=== PATIENT | female | born 1995 | race Caucasian/White ===

== ENCOUNTER 2023-01-07 11:06 | Outpatient (CLI) | payer BC, SELFPAY ==
[2023-01-07 14:09] LABS: Cholesterol* 178 mg/dL (90-199); Glucose* 90 mg/dL (60-115); HDL Cholesterol* 47 mg/dL (>=50); LDL Cholesterol Calculated 108 mg/dL (<100); Triglycerides* 115 mg/dL (40-149)
== END 2023-01-07 11:07 | disposition home or self-care (01) ==
PROVIDERS: PCP Family Medicine; Visit Provider Physician Assistant
DX: Z01.419 Encounter for gynecological examination (general) (routine) without abnormal findings (principal); E66.9 Obesity, unspecified; L65.9 Nonscarring hair loss, unspecified; F41.9 Anxiety disorder, unspecified; Z13.6 Encounter for screening for cardiovascular disorders; Z13.1 Encounter for screening for diabetes mellitus
CPT/HCPCS: 80061; 82947; 84443

== ENCOUNTER 2023-03-01 14:27 | Outpatient (CLI) | payer BC, SELFPAY | END 2023-03-01 14:28 | disposition home or self-care (01) | LOC: AMB 03-02 06:35 | PROVIDERS: PCP Family Medicine; Visit Provider Family Medicine | DX: R55 Syncope and collapse (principal) | CPT/HCPCS: A0425; A0427 ==

== ENCOUNTER 2023-03-01 14:48 | Emergency (ER) | payer BC, SELFPAY ==
[2023-03-01] VITALS (21 sets, daily range): BP systolic 102–121; BP diastolic 57–79; PULSE 74–99; RESP 16; TEMP 36.7; O2SAT 16–99; BMI 40.6
--- NOTE | 2023-03-01 15:43 | CRLHL7_ITS ---
For Patients: As a result of the Century Cures Act, medical imaging exams and procedure reports are released immediately into your electronic medical record. You may view this report before your referring provider. If you have questions, please contact your health care provider. INDICATION: Fall. TECHNIQUE: Noncontrast CT images acquired through the cervical spine. COMPARISON: None. FINDINGS: Mild rightward cervical curvature. Mild straightening of the cervical lordosis. Vertebral body heights are maintained. No acute fracture, spondylolisthesis, or traumatic subluxation. No spinal canal or neural foraminal stenosis. The visualized lungs are clear. IMPRESSION: No acute fracture or traumatic subluxation. Please note that all CT scans at this facility use dose modulation, iterative reconstruction, and/or weight-based dosing when appropriate to reduce radiation dose to as low as reasonably achievable. Dictated by Keyon Villanueva MD @ 03/01/2023 6:28:28 PM (Electronically Signed)
--- NOTE | 2023-03-01 15:43 | CRLHL7_ITS ---
For Patients: As a result of the Century Cures Act, medical imaging exams and procedure reports are released immediately into your electronic medical record. You may view this report before your referring provider. If you have questions, please contact your health care provider. INDICATION: Fall. TECHNIQUE: Noncontrast CT images acquired through the brain. COMPARISON: None. FINDINGS: The ventricles and sulci are within normal limits for patient age. No mass effect or midline shift. The healy-white differentiation is maintained. No acute intracranial hemorrhage or pathologic extra-axial fluid collection. The globes are symmetric. The calvarium is intact. The visualized paranasal sinuses and mastoid air cells are clear. IMPRESSION: No acute intracranial hemorrhage or mass effect. Please note that all CT scans at this facility use dose modulation, iterative reconstruction, and/or weight-based dosing when appropriate to reduce radiation dose to as low as reasonably achievable. Dictated by Keyon Villanueva MD @ 03/01/2023 6:17:23 PM (Electronically Signed)
--- NOTE | 2023-03-01 15:45 | ED_ITS ---
HPI - Dizziness General Date Seen: 03/01/23 <Eliceo Marsh MD - Last Filed: 03/05/23 07:58> Chief Complaint: Syncope/Fainted <Eliceo Marsh MD - Last Filed: 03/05/23 07:58> Stated Complaint: Syncope <Eliceo Marsh MD - Last Filed: 03/05/23 07:58> Time Seen by Provider: 03/01/23 15:06 <Eliceo Marsh MD - Last Filed: 03/05/23 07:58> Source: patient, family and EMS <Eliceo Marsh MD - Last Filed: 03/05/23 07:58> Mode of arrival: EMS <Eliceo Marsh MD - Last Filed: 03/05/23 07:58> Limitations: no limitations <Eliceo Marsh MD - Last Filed: 03/05/23 07:58> History of Present Illness HPI Narrative: Patient is a 27-year-old female who presents here by EMS after a syncopal episode, she fell at home, she was feeling unwell after a walk with her partner, when in the bedroom here to clunk in that he witnessed her on the ground, she has the front part of her head, the back part, she has a headache and some neck pain with this. Sugars were checked at the scene over 85 which was good, she recently in the last 2 weeks is put on prazosin, and this was increased last night, she reports to me that she feels dizzy, and weak, and feels like the room is moving around, has no history of previous head injuries, she has no history of viral type symptoms, such as sore throat runny nose, there is no fevers chills, she did have an episode of syncope when she was much younger but has not had that recently. She denies any drugs, alcohol, history of any cardiac issues. Strong history of psychiatric illnesses. Denies being sexually active, <Eliceo Marsh MD - Last Filed: 03/05/23 07:58> MD elicited complaint: dizziness and lightheadedness <Eliceo Marsh MD - Last Filed: 03/05/23 07:58> Timing: sudden onset <Eliceo Marsh MD - Last Filed: 03/05/23 07:58> Severity: moderate <Eliceo Marsh MD - Last Filed: 03/05/23 07:58> Description: sense of movement, room spinning and lightheadedness <Eliceo Marsh MD - Last Filed: 03/05/23 07:58> History of similar symptoms: Yes <Eliceo Marsh MD - Last Filed: 03/05/23 07:58> Exacerbating factors: movement/ambulation and change in body position <Eliceo Marsh MD - Last Filed: 03/05/23 07:58> Relieving factors: remaining still <Eliceo Marsh MD - Last Filed: 03/05/23 07:58> Associated symptoms: denies other symptoms <Eliceo Marsh MD - Last Filed: 03/05/23 07:58> Related Data Home Medications: Home Medications Medication Instructions Recorded Confirmed aripiprazole 5 mg tablet 5 mg PO DAILY 06/10/22 01/28/23 clindamycin phosphate 1 % lotion 1 topical BID 06/10/22 01/28/23 atomoxetine 25 mg capsule 25 mg PO QDAY 01/28/23 01/28/23 prazosin 1 mg capsule 1 - 2 mg PO QPM 03/01/23 03/01/23 trazodone 50 mg tablet 50 - 100 mg PO QPM 03/01/23 03/01/23 Previous Rx's Medication Instructions Recorded ondansetron 8 mg disintegrating 8 mg PO TID PRN nausea and 01/28/23 tablet vomiting #20 tabs sumatriptan succinate 100 mg tablet 100 mg PO Q2H PRN migraine 02/04/23 headache #10 tabs <Eliceo Marsh MD - Last Filed: 03/05/23 07:58> Allergies/Adverse Reactions: Allergies Allergy/AdvReac Type Severity Reaction Status Date / Time No Known Drug Allergies Allergy Verified 01/28/23 13:52 <Eliceo Marsh MD - Last Filed: 03/05/23 07:58> Review of Systems Status of ROS: Reports: 10 or more systems reviewed and unremarkable except as noted in History and below <Eliceo Marsh MD - Last Filed: 03/05/23 07:58> [facility] Medical History: Medical History Anxiety ?F41.9 - Anxiety disorder, unspecified (ICD-10) Attention deficit disorder ?F98.8 - Other specified behavioral and emotional disorders with onset usually occurring in childhood and adolescence (ICD-10) Major depression, chronic ?F32.9 - Major depressive disorder, single episode, unspecified (ICD-10) Migraine headache ?G43.909 - Migraine, unspecified, not intractable, without status migrainosus (ICD-10) Obesity ?E66.9 - Obesity, unspecified (ICD-10) Schizoaffective disorder ?F25.9 - Schizoaffective disorder, unspecified (ICD-10) <Eliceo Marsh MD - Last Filed: 03/05/23 07:58> Surgical History: Surgical History History of third molar tooth extraction ?K08.409 - Partial loss of teeth, unspecified cause, unspecified class (ICD- 10) <Eliceo Marsh MD - Last Filed: 03/05/23 07:58> Family History: Family History Brother Depression Mother Migraines <Eliceo Marsh MD - Last Filed: 03/05/23 07:58> Social History: Social History Narrative: , currently not working. Exercises twice a week. Nonsmoker. No alcohol or illicit drug use. Feels safe in no concerns with abuse. Smoking Status: Never smoker How often do you have a drink containing alcohol: never AUDIT-C Alcohol total score: 0 Non-prescribed substance use: denies use Little interest or pleasure in doing things: not at all Feeling down, depressed, or hopeless: several days service: No <Eliceo Marsh MD - Last Filed: 03/05/23 07:58> Exam Narrative: Exam Narrative: Patient is seen in room 5 she is in no apparent distress, her pupils are equal round reactive to light her fundi appear normally she does have nystagmus horizontal [address] 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 Her neck is full range of motion of flexion extension lateral flexion and rotation, there is no tenderness to palpation, TMs are normal, she moves her extremities normal, her chest is clear, heart sounds are normal, cervical thoracic and lumbar spine palpate normal, her GCS is 15/15, good power both distally and proximally, symmetrical, and her reflexes are normal fine motor movements fingers nose testing are normal and there is no obvious tremor. <Eliceo Marsh MD - Last Filed: 03/05/23 07:58> Const: Vital Signs, click to edit/add: Vital Signs - 24 hr 03/01/23 14:55 03/01/23 17:12 03/01/23 15:57 Temperature 98.1 F Pulse Rate 92 Pulse Rate [Left P ulse Oximeter] 87 88 Respiratory Rate 16 Blood Pressure Blood Pressure [Ri ght Upper Arm] 102/69 113/74 Pulse Oximetry 94 16 L [facility] 03/01/23 16:00 03/01/23 16:01 03/01/23 16:15 Temperature Pulse Rate 92 99 93 Pulse Rate [Left P ulse Oximeter] Respiratory Rate Blood Pressure 120/57 L Blood Pressure [Ri ght Upper Arm] Pulse Oximetry 95 96 97 Oxygen Delivery Ut thod 03/01/23 16:30 03/01/23 16:31 03/01/23 16:45 Temperature Pulse Rate 86 86 91 Pulse Rate [Left P ulse Oximeter] Respiratory Rate Blood Pressure 111/68 Blood Pressure [Ri ght Upper Arm] Pulse Oximetry 98 97 97 Oxygen Delivery Me thod 03/01/23 17:13 03/01/23 17:14 03/01/23 17:15 Temperature Pulse Rate 84 84 83 Pulse Rate [Left P ulse Oximeter] Respiratory Rate Blood Pressure 113/74 Blood Pressure [Ri ght Upper Arm] Pulse Oximetry 98 98 97 Oxygen Delivery Ut thod 03/01/23 17:30 03/01/23 17:31 03/01/23 17:32 Temperature Pulse Rate 86 89 89 Pulse Rate [Left P ulse Oximeter] Respiratory Rate Blood Pressure 110/78 Blood Pressure [Ri ght Upper Arm] Pulse Oximetry 97 97 97 Oxygen Delivery Me thod <Eliceo Marsh MD - Last Filed: 03/05/23 07:58> Vital Signs, click to edit/add: Vital Signs - 24 hr 03/01/23 14:55 03/01/23 17:12 03/01/23 15:57 Temperature 98.1 F Pulse Rate 92 Pulse Rate [Left P ulse Oximeter] 87 88 Respiratory Rate 16 Blood Pressure Blood Pressure [Ri ght Upper Arm] 102/69 113/74 Pulse Oximetry 94 16 L 98 Oxygen Delivery Me thod Room Air Room Air 03/01/23 16:00 03/01/23 16:01 03/01/23 16:15 Temperature Pulse Rate 92 99 93 Pulse Rate [Left P ulse Oximeter] Respiratory Rate Blood Pressure 120/57 L Blood Pressure [Ri ght Upper Arm] Pulse Oximetry 95 96 97 Oxygen Delivery Me thod 03/01/23 16:30 03/01/23 16:31 03/01/23 16:45 Temperature Pulse Rate 86 86 91 Pulse Rate [Left P ulse Oximeter] Respiratory Rate Blood Pressure 111/68 Blood Pressure [Ri ght Upper Arm] Pulse Oximetry 98 97 97 Oxygen Delivery Me thod 03/01/23 17:13 03/01/23 17:14 03/01/23 17:15 Temperature Pulse Rate 84 84 83 Pulse Rate [Left P ulse Oximeter] Respiratory Rate Blood Pressure 113/74 Blood Pressure [Ri ght Upper Arm] Pulse Oximetry 98 98 97 Oxygen Delivery Me thod 03/01/23 17:30 03/01/23 17:31 03/01/23 17:32 Temperature Pulse Rate 86 89 89 Pulse Rate [Left P ulse Oximeter] Respiratory Rate Blood Pressure 110/78 Blood Pressure [Ri ght Upper Arm] Pulse Oximetry 97 97 97 Oxygen Delivery Me thod <Mateo Thorpe MD - Last Filed: 03/01/23 18:40> Documenting provider has reviewed patient's vital signs: yes <Eliceo Marsh MD - Last Filed: 03/05/23 07:58> Course Vital Signs Vital signs: Initial Vital Signs Temperature 98.1 F 03/01/23 14:55 Temperature Source Temporal Artery Scan 03/01/23 14:55 Pulse Rate 87 03/01/23 14:55 Pulse Rhythm Regular 03/01/23 14:55 Respiratory Rate 16 03/01/23 14:55 Blood Pressure 102/69 03/01/23 14:55 Blood Pressure Mean 80 03/01/23 14:55 Pulse Oximetry 94 03/01/23 14:55 Oxygen Delivery Method Room Air 03/01/23 14:55 Vital Signs Temperature 98.1 F 03/01/23 14:55 Pulse Rate 87 03/01/23 14:55 Respiratory Rate 16 03/01/23 14:55 Blood Pressure 102/69 03/01/23 14:55 Pulse Oximetry 94 03/01/23 14:55 Oxygen Delivery Method Room Air 03/01/23 14:55 Temperature 98.1 F 03/01/23 14:55 Pulse Rate 86 03/01/23 18:45 Respiratory Rate 16 03/01/23 14:55 Blood Pressure 121/79 03/01/23 18:31 Pulse Oximetry 97 03/01/23 18:45 Oxygen Delivery Method Room Air 03/01/23 17:12 <Eliceo Marsh MD - Last Filed: 03/05/23 07:58> Initial Vital Signs Temperature 98.1 F 03/01/23 14:55 Temperature Source Temporal Artery Scan 03/01/23 14:55 Pulse Rate 87 03/01/23 14:55 Pulse Rhythm Regular 03/01/23 14:55 Respiratory Rate 16 03/01/23 14:55 Blood Pressure 102/69 03/01/23 14:55 Blood Pressure Mean 80 03/01/23 14:55 Pulse Oximetry 94 03/01/23 14:55 Oxygen Delivery Method Room Air 03/01/23 14:55 Vital Signs Temperature 98.1 F 03/01/23 14:55 Pulse Rate 87 03/01/23 14:55 Respiratory Rate 16 03/01/23 14:55 Blood Pressure 102/69 03/01/23 14:55 Pulse Oximetry 94 03/01/23 14:55 Oxygen Delivery Method Room Air 03/01/23 14:55 Temperature 98.1 F 03/01/23 14:55 Pulse Rate 86 03/01/23 18:45 Respiratory Rate 16 03/01/23 14:55 Blood Pressure 121/79 03/01/23 18:31 Pulse Oximetry 97 03/01/23 18:45 Oxygen Delivery Method Room Air 03/01/23 17:12 <Mateo Thorpe MD - Last Filed: 03/01/23 18:40> MDM - Dizziness MDM Narrative Medical decision making narrative: Life-threatening differential diagnosis considered include: Cardiac arrhythmia, acute blood loss, and intracranial bleed. Other differential diagnosis include but are not limited to vasovagal syncope, orthostatic syncope, seizure, as well as other etiologies <Eliceo Marsh MD - Last Filed: 03/05/23 07:58> Life-threatening differential diagnosis considered include: Cardiac arrhythmia, acute blood loss, and intracranial bleed. Other differential diagnosis include but are not limited to vasovagal syncope, orthostatic syncope, seizure, as well as other etiologies This patient comes in with a syncopal event. Lab results and imaging results returned with normal findings. She did increase her prazosin dose yesterday and this lower blood pressure is a contributor toward her syncopal event. Her blood pressure on arrival was 102/69. At the time that I checked her she had a blood pressure of 121 for systolic value. She is feeling normal and is okay to return home. I did advise her to revert back to the previous dosing and follow-up with her primary physician for re-evaluation of this medication. It would also be helpful if she were able to acquire some blood pressure readings for this follow-up appointment. <Mateo Thorpe MD - Last Filed: 03/01/23 18:40> Medical Records Attestation: I reviewed the patient's medical records. <Eliceo Marsh MD - Last Filed: 03/05/23 07:58> Lab Data Labs: Lab Results 03/01/23 03/01/23 03/01/23 Range/Units 15:41 15:55 16:05 WBC 11.60 H (4.50-11.00) K/uL RBC 5.00 (4.00-5.20) m/uL Hgb 13.8 (12.0-16.0) gm/dL Hct 41.3 (33.0-51.0) % MCV 83 (80-100) fL MCH 28 (26-34) pg MCHC 33 (32-36) gm/dL RDW Coeff of [place] 12.5 (11.5-15.5) % Plt Count 290 (140-440) K/uL Neut % (Auto) 78.6 H (42.0-72.0) % Lymph % (Auto) 11.5 L (20-44) % [place] % (Auto) 8.8 (0.0-11.0) % Eos % (Auto) 0.8 (0.0-7.0) % Baso % (Auto) 0.2 (0.0-3.0) % Neut # (Auto) 9.10 H (1.7-7.0) K/uL Lymph # (Auto) 1.30 (0.90-2.90) K/uL [place] # (Auto) 1.00 H (0.00-0.90) K/UL Eos # (Auto) 0.10 (0.00-0.50) K/uL Baso # (Auto) 0.00 (0.00-0.30) K/uL INR 1.02 (0.91-1.10) APTT 28 (23-33) Seconds D-Dimer Quant (PE/DVT) < 0.27 (0.00-0.50) ug/ml Sodium 137 (135-149) mmol/L Potassium 4.0 (3.6-5.1) mmol/L Chloride 102 (96-114) mmol/L Carbon Dioxide 24 (20-32) mmol/L BUN 16 (5-24) mg/dL Creatinine 0.7 (0.5-1.5) mg/dL Estimated Creat Clear 98.98 Estimated GFR 121 ml/min Glucose 139 H (60-115) mg/dL Calcium 9.2 (8.4-10.6) mg/dL NT-Pro-B Natriuret Pep < 20 pg/mL HCG, Qual Negative (Negative) Urine Color (Yellow) Urine Appearance (Clear) Urine pH (5.0-8.5) Ur Specific [place] (1.000-1.030) Urine Protein (Negative) Urine Glucose (UA) (Negative) Urine Ketones (Negative) Urine Blood (Negative) Urine Nitrite (Negative) Urine Bilirubin (Negative) Urine Urobilinogen (0.2-1.0) Ur Leukocyte Esterase (Negative) Urine RBC (0-2) Urine WBC (0-5) Ur Squamous Epith Cells (None-Few) Urine Bacteria (None) Fine Granular Casts (None) Urine Opiates Screen (Negative) Ur Oxycodone Screen (Negative) Urine Methadone Screen (Negative) Ur Propoxyphene Screen (Negative) Ur Barbiturates Screen (Negative) U Tricyclic Antidepress (Negative) Ur Phencyclidine Scrn (Negative) Ur Amphetamines Screen (Negative) U Methamphetamines Scrn (Negative) U Benzodiazepines Scrn (Negative) Urine Cocaine Screen (Negative) U Marijuana (THC) Screen (Negative) Ur Drug Screen Comment Ethyl Alcohol < 0.01 L (0.01-0.03) % SARS-CoV-2 (PCR) Negative SARS-CoV-2 (Negative) Influenza Type A (PCR) Negative PCR FLU A (Negative) Influenza Type B (PCR) Negative PCR FLU B (Negative) RSV (PCR) Negative PCR RSV (Negative) POC Troponin I 0.00 L (0.01-0.04) ng/ml 03/01/23 Range/Units 16:51 WBC (4.50-11.00) K/uL RBC (4.00-5.20) m/uL Hgb (12.0-16.0) gm/dL Hct (33.0-51.0) % MCV (80-100) fL MCH (26-34) pg MCHC (32-36) gm/dL RDW Coeff of [place] (11.5-15.5) % Plt Count (140-440) K/uL Neut % (Auto) (42.0-72.0) % Lymph % (Auto) (20-44) % [place] % (Auto) (0.0-11.0) % Eos % (Auto) (0.0-7.0) % Baso % (Auto) (0.0-3.0) % Neut # (Auto) (1.7-7.0) K/uL Lymph # (Auto) (0.90-2.90) K/uL [place] # (Auto) (0.00-0.90) K/UL Eos # (Auto) (0.00-0.50) K/uL Baso # (Auto) (0.00-0.30) K/uL INR (0.91-1.10) APTT (23-33) Seconds D-Dimer Quant (PE/DVT) (0.00-0.50) ug/ml Sodium (135-149) mmol/L Potassium (3.6-5.1) mmol/L Chloride (96-114) mmol/L Carbon Dioxide (20-32) mmol/L BUN (5-24) mg/dL Creatinine (0.5-1.5) mg/dL Estimated Creat Clear Estimated GFR ml/min Glucose (60-115) mg/dL Calcium (8.4-10.6) mg/dL NT-Pro-B Natriuret Pep pg/mL HCG, Qual (Negative) Urine Color [place] A (Yellow) Urine Appearance Slightly Cloudy A (Clear) Urine pH 6.0 (5.0-8.5) Ur Specific [place] >= 1.030 (1.000-1.030) Urine Protein 1+ A (Negative) Urine Glucose (UA) Negative (Negative) Urine Ketones Negative (Negative) Urine Blood Negative (Negative) Urine Nitrite Negative (Negative) Urine Bilirubin 1+ A (Negative) Urine Urobilinogen 1.0 (0.2-1.0) Ur Leukocyte Esterase Negative (Negative) Urine RBC 0-2 (0-2) Urine WBC 0-2 (0-5) Ur Squamous Epith Cells Few (None-Few) Urine Bacteria Moderate A (None) Fine Granular Casts Few A (None) Urine Opiates Screen Negative (Negative) Ur Oxycodone Screen Negative (Negative) Urine Methadone Screen Negative (Negative) Ur Propoxyphene Screen Negative (Negative) Ur Barbiturates Screen Negative (Negative) U Tricyclic Antidepress Negative (Negative) Ur Phencyclidine Scrn Negative (Negative) Ur Amphetamines Screen Negative (Negative) U Methamphetamines Scrn Negative (Negative) U Benzodiazepines Scrn Negative (Negative) Urine Cocaine Screen Negative (Negative) U Marijuana (THC) Screen Negative (Negative) Ur Drug Screen Comment See Note Ethyl Alcohol (0.01-0.03) % SARS-CoV-2 (PCR) (Negative) Influenza Type A (PCR) (Negative) Influenza Type B (PCR) (Negative) RSV (PCR) (Negative) POC Troponin I (0.01-0.04) ng/ml <Eliceo Marsh MD - Last Filed: 03/05/23 07:58> Lab Results 03/01/23 03/01/23 03/01/23 Range/Units 15:41 15:55 16:05 WBC 11.60 H (4.50-11.00) K/uL RBC 5.00 (4.00-5.20) m/uL Hgb 13.8 (12.0-16.0) gm/dL Hct 41.3 (33.0-51.0) % MCV 83 (80-100) fL MCH 28 (26-34) pg MCHC 33 (32-36) gm/dL RDW Coeff of [place] 12.5 (11.5-15.5) % Plt Count 290 (140-440) K/uL Neut % (Auto) 78.6 H (42.0-72.0) % Lymph % (Auto) 11.5 L (20-44) % [place] % (Auto) 8.8 (0.0-11.0) % Eos % (Auto) 0.8 (0.0-7.0) % Baso % (Auto) 0.2 (0.0-3.0) % Neut # (Auto) 9.10 H (1.7-7.0) K/uL Lymph # (Auto) 1.30 (0.90-2.90) K/uL [place] # (Auto) 1.00 H (0.00-0.90) K/UL Eos # (Auto) 0.10 (0.00-0.50) K/uL Baso # (Auto) 0.00 (0.00-0.30) K/uL INR 1.02 (0.91-1.10) APTT 28 (23-33) Seconds D-Dimer Quant (PE/DVT) < 0.27 (0.00-0.50) ug/ml Sodium 137 (135-149) mmol/L Potassium 4.0 (3.6-5.1) mmol/L Chloride 102 (96-114) mmol/L Carbon Dioxide 24 (20-32) mmol/L BUN 16 (5-24) mg/dL Creatinine 0.7 (0.5-1.5) mg/dL Estimated Creat Clear 98.98 Estimated GFR 121 ml/min Glucose 139 H (60-115) mg/dL Calcium 9.2 (8.4-10.6) mg/dL NT-Pro-B Natriuret Pep < 20 pg/mL HCG, Qual Negative (Negative) Urine Color (Yellow) Urine Appearance (Clear) Urine pH (5.0-8.5) Ur Specific [place] (1.000-1.030) Urine Protein (Negative) Urine Glucose (UA) (Negative) Urine Ketones (Negative) Urine Blood (Negative) Urine Nitrite (Negative) Urine Bilirubin (Negative) Urine Urobilinogen (0.2-1.0) Ur Leukocyte Esterase (Negative) Urine RBC (0-2) Urine WBC (0-5) Ur Squamous Epith Cells (None-Few) Urine Bacteria (None) Fine Granular Casts (None) Urine Opiates Screen (Negative) Ur Oxycodone Screen (Negative) Urine Methadone Screen (Negative) Ur Propoxyphene Screen (Negative) Ur Barbiturates Screen (Negative) U Tricyclic Antidepress (Negative) Ur Phencyclidine Scrn (Negative) Ur Amphetamines Screen (Negative) U Methamphetamines Scrn (Negative) U Benzodiazepines Scrn (Negative) Urine Cocaine Screen (Negative) U Marijuana (THC) Screen (Negative) Ur Drug Screen Comment Ethyl Alcohol < 0.01 L (0.01-0.03) % SARS-CoV-2 (PCR) Negative SARS-CoV-2 (Negative) Influenza Type A (PCR) Negative PCR FLU A (Negative) Influenza Type B (PCR) Negative PCR FLU B (Negative) RSV (PCR) Negative PCR RSV (Negative) POC Troponin I 0.00 L (0.01-0.04) ng/ml 03/01/23 Range/Units 16:51 WBC (4.50-11.00) K/uL RBC (4.00-5.20) m/uL Hgb (12.0-16.0) gm/dL Hct (33.0-51.0) % MCV (80-100) fL MCH (26-34) pg MCHC (32-36) gm/dL RDW Coeff of [place] (11.5-15.5) % Plt Count (140-440) K/uL Neut % (Auto) (42.0-72.0) % Lymph % (Auto) (20-44) % [place] % (Auto) (0.0-11.0) % Eos % (Auto) (0.0-7.0) % Baso % (Auto) (0.0-3.0) % Neut # (Auto) (1.7-7.0) K/uL Lymph # (Auto) (0.90-2.90) K/uL [place] # (Auto) (0.00-0.90) K/UL Eos # (Auto) (0.00-0.50) K/uL Baso # (Auto) (0.00-0.30) K/uL INR (0.91-1.10) APTT (23-33) Seconds D-Dimer Quant (PE/DVT) (0.00-0.50) ug/ml Sodium (135-149) mmol/L Potassium (3.6-5.1) mmol/L Chloride (96-114) mmol/L Carbon Dioxide (20-32) mmol/L BUN (5-24) mg/dL Creatinine (0.5-1.5) mg/dL Estimated Creat Clear Estimated GFR ml/min Glucose (60-115) mg/dL Calcium (8.4-10.6) mg/dL NT-Pro-B Natriuret Pep pg/mL HCG, Qual (Negative) Urine Color [place] A (Yellow) Urine Appearance Slightly Cloudy A (Clear) Urine pH 6.0 (5.0-8.5) Ur Specific [place] >= 1.030 (1.000-1.030) Urine Protein 1+ A (Negative) Urine Glucose (UA) Negative (Negative) Urine Ketones Negative (Negative) Urine Blood Negative (Negative) Urine Nitrite Negative (Negative) Urine Bilirubin 1+ A (Negative) Urine Urobilinogen 1.0 (0.2-1.0) Ur Leukocyte Esterase Negative (Negative) Urine RBC 0-2 (0-2) Urine WBC 0-2 (0-5) Ur Squamous Epith Cells Few (None-Few) Urine Bacteria Moderate A (None) Fine Granular Casts Few A (None) Urine Opiates Screen Negative (Negative) Ur Oxycodone Screen Negative (Negative) Urine Methadone Screen Negative (Negative) Ur Propoxyphene Screen Negative (Negative) Ur Barbiturates Screen Negative (Negative) U Tricyclic Antidepress Negative (Negative) Ur Phencyclidine Scrn Negative (Negative) Ur Amphetamines Screen Negative (Negative) U Methamphetamines Scrn Negative (Negative) U Benzodiazepines Scrn Negative (Negative) Urine Cocaine Screen Negative (Negative) U Marijuana (THC) Screen Negative (Negative) Ur Drug Screen Comment See Note Ethyl Alcohol (0.01-0.03) % SARS-CoV-2 (PCR) (Negative) Influenza Type A (PCR) (Negative) Influenza Type B (PCR) (Negative) RSV (PCR) (Negative) POC Troponin I (0.01-0.04) ng/ml <Mateo Thorpe MD - Last Filed: 03/01/23 18:40> ECG Data Attestation: I personally reviewed and interpreted this ECG as follows: <Eliceo Marsh MD - Last Filed: 03/05/23 07:58> ECG interpretation date: 03/01/23 <Eliceo Marsh MD - Last Filed: 03/05/23 07:58> Prior ECG tracings: not available for review <Eliceo Marsh MD - Last Filed: 03/05/23 07:58> Interpretation: EKG shows normal sinus rhythm, QRS, QT and IA intervals are normal, assessment EKG with T-wave abnormality most notably in V1 and V2, no acute changes. <Eliceo Marsh MD - Last Filed: 03/05/23 07:58> Discharge Plan Discharge Clinical Impression: Syncope <Eliceo Marsh MD - Last Filed: 03/05/23 07:58> Patient Disposition: Home, Self-Care <Eliceo Marsh MD - Last Filed: 03/05/23 07:58> Condition: Improved <Eliceo Marsh MD - Last Filed: 03/05/23 07:58> Additional Instructions: Revert back to previous dose of prazosin and follow-up with primary physician to review medications. Would be helpful to record blood pressure readings for this appointment. <Eliceo Marsh MD - Last Filed: 03/05/23 07:58> Prescriptions: No Action aripiprazole 5 mg tablet 5 mg PO DAILY clindamycin phosphate 1 % lotion 1 topical BID Rx Instructions: Apply topically to affectd area twice daily atomoxetine 25 mg capsule 25 mg PO QDAY ondansetron 8 mg tablet,disintegrating 8 mg PO TID PRN (Reason: nausea and vomiting) Qty: 20 0RF trazodone 50 mg tablet 50 - 100 mg PO QPM prazosin 1 mg capsule 1 - 2 mg PO QPM sumatriptan succinate 100 mg tablet 100 mg PO Q2H PRN (Reason: migraine headache) Qty: 10 5RF Rx Instructions: ONE TAB AT ONSET OF HEADACHE, MAY REPEAT ONCE IN 2 HRS, MAX 200 MG/24 HRS <Eliceo Marsh MD - Last Filed: 03/05/23 07:58> Follow Up/Referrals: Nael Hassan MD [Primary Care Provider] - <Eliceo Marsh MD - Last Filed: 03/05/23 07:58> Stand Alone Forms: [facility] Info Instructions <Eliceo Marsh MD - Last Filed: 03/05/23 07:58>
[2023-03-01] MEDS: 0.9 % SODIUM CHLORIDE 1000 ml 1,000 ML IV (16:16)
[2023-03-01 16:31] LABS: Basophils Percent Auto 0.2 % (0.0-3.0); Eosinophils Percent Auto 0.8 % (0.0-7.0); Hematocrit 41.3 % (33.0-51.0); Hemoglobin* 13.8 gm/dL (12.0-16.0); Immature Granulocytes Pct Auto 0.1 %; Lymphocytes Percent Auto 11.5 % (20-44); Mean Corpuscular HGB Conc 33 gm/dL (32-36); Mean Corpuscular Hemoglobin 28 pg (26-34); Mean Corpuscular Volume 83 fL (80-100); Monocytes Percent Auto 8.8 % (0.0-11.0); Neutrophils Percent Auto 78.6 % (42.0-72.0); Platelet Count* 290 K/uL (140-440); RDW Coefficient of Variation % 12.5 % (11.5-15.5)
[2023-03-01 16:37] LABS: Slide Review Reflex No
[2023-03-01 16:43] LABS: Chloride* 102 mmol/L (96-114); Sodium* 137 mmol/L (135-149)
[2023-03-01 16:46] LABS: Blood Urea Nitrogen* 16 mg/dL (5-24); Carbon Dioxide* 24 mmol/L (20-32); Creatinine* 0.7 mg/dL (0.5-1.5); Est. Creatinine Clearance* 98.98; Estimated Glomerular Filt Rate 121 ml/min
[2023-03-01 16:47] LABS: Calcium* 9.2 mg/dL (8.4-10.6); Glucose* 139 mg/dL (60-115); INR 1.02 (0.91-1.10)
[2023-03-01 16:48] LABS: Partial Thromboplastin Time* 28 Seconds (23-33)
[2023-03-01 17:01] LABS: D Dimer Quantitative* < 0.27 ug/ml (0.00-0.50)
[2023-03-01 17:03] LABS: Appearance Urine Slightly Cloudy (Clear); Bilirubin Urine 1+ (Negative); Blood Urine Negative (Negative); Color Urine Orange (Yellow); Glucose Urine Negative (Negative); Ketones Urine Negative (Negative); Leukocyte Esterase Urine Negative (Negative); Nitrite Urine Negative (Negative); Protein Urine 1+ (Negative); Specific Gravity Urine >= 1.030 (1.000-1.030)
[2023-03-01 17:05] LABS: PCR FLU A Negative PCR FLU A (Negative); PCR FLU B Negative PCR FLU B (Negative); PCR RSV Negative PCR RSV (Negative); SARS PCR* Negative SARS-CoV-2 (Negative)
[2023-03-01 17:11] LABS: Amphetamine Screen Urine Negative (Negative); Barbiturate Screen Urine Negative (Negative); Benzodiazepines Screen Urine Negative (Negative); Cannabinoid Screen Urine Negative (Negative); Cocaine Screen Urine Negative (Negative); Methadone Screen Urine Negative (Negative); Methamphetamines Screen Urine Negative (Negative); Opiate Screen Urine Negative (Negative); Oxycodone Screen Urine Negative (Negative); Phencyclidine Screen Urine Negative (Negative); Tricyclic Antidepressant Urine Negative (Negative)
[2023-03-01 17:16] LABS: HCG Qualitative Serum* Negative (Negative)
[2023-03-01 17:17] LABS: RBC Urine 0-2 (0-2); Squamous Epithelial Cell Urine Few (None-Few); WBC Urine 0-2 (0-5)
[2023-03-01 17:18] LABS: Bacteria Urine Moderate; Fine Granular Casts Urine Few
[2023-03-01 17:20] LABS: Ethanol* < 0.01 % (0.01-0.03); NT Pro B Type NatriureticPept* < 20 pg/mL
== END 2023-03-01 18:56 | disposition home or self-care (01) ==
PROVIDERS: Family Medicine; Emergency Provider Emergency Medicine Emergency Medical Services; PCP Family Medicine
DX: R55 Syncope and collapse (principal)
CPT/HCPCS: 36415; 70450; 72125; 80048; 80306; 81001; 82077; 83880; 84484; 84703; 85025; 85379; 85610; 85730; 87086; 87631; 93005; 99284; J7030

== ENCOUNTER 2023-05-19 13:00 | Outpatient (RCR) | payer BC, SELFPAY ==
--- NOTE | 2023-04-08 14:18 | PT.OPEX ---
PT [place] Outpatient Eval PT [facility] Outpatient Eval Start: 03/31/23 12:50 Freq: Status: Active Protocol: Document 03/31/23 12:50 HN (Rec: 04/01/23 10:00 HN [id number]) E-signed By Gretchen Narayanan DPT Physical Therapy Outpatient Evaluation Insurance Information Recert Due Date 06/28/23 Insurance Name Medicaid Insurance Information/Comments [place] Products Medical Diagnosis Pain in left knee M25. 562 Treating Diagnosis Pain in left knee M25. 562 Referring MD Nael Santiago MD Subjective Subjective Patient is a 28 year old female with 6 year chronic knee pain with recent exacerbation 3 weeks ago with syncopal episode. Patient reports she fainted to low blood pressure from medications. Patient reports her left knee jose alfredo 1x/day. Pain characteristics: pain is dull and achey, diffusely along anterior knee Aggravating factors: bending for prolonged periods of time, sitting with legs crossed, stairs, walking long distances >3 miles. Easing Factors: Tylenol, stretching leg straight Prior level of function: independent and unlimited with all ADLs and IADLs Current limitations: bending for prolonged periods of time, sitting with legs crossed, stairs, walking long distances >3 miles. 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 2 stairs to get into apartment, laundry is on second floor of apartment. Pain Comments Current: 10 Best: 10 Worst: /10 Current Work Status Unemployed Preferred Name Sahra Precautions Weight Bearing Status Full Weight Bearing Objective Other/Pertinent Objective Range of motion (degrees): Hip range of motion is grossly intact bilaterally Knee ROM: 0-125 degrees bilaterally, increased pain at end range on left 5 time sit to stand: 13 seconds with increased pain Manual muscle testing: Hip flexion: 4/5 L , 5/5 R Hip abduction: 5/5 L , 5/5 R Hip adduction: 5/5 L , 5/5 R Hip extension: 3+/5 L , 5/5 R Knee extension: 4/5 L , 5/5 R Knee flexion: 4/5 L , 5/5 R Ankle DF : 5/5 L , 5/5 R Ankle PF: 5/5 L , 5/5 R Special tests: Anterior drawer: negative bilaterally Posterior drawer: negative bilaterally Valgus: negative bilaterally Varus: negative bilaterally Thessally: positive on left Apley's: positive on left Patellar grind: negative bilaterally Squat: increased pain, wide base of support, decreased depth of squat Step down test: mild hip weakness noted, increased pain on L Sensation: patient denies any changes in sensation Joint mobility: painful with medial/lateral patellar glides Palpation: increased tenderness along medial border of patella Functional Test Performed & Score Lower Extremity Functional Score: 38 / 80 = 47.5 % Assessment Assessment/Impression Patient is a 28 year old with complaints of chronic left knee pain with recent exacerbation in last 3 weeks after syncopal episode. Patient demonstrates impaired pain at end range flexion/ extension of left knee , decreased left hip and knee strength, and pain consistent with knee instability. The impairments impact the patients ability to sit for prolonged periods of time, standing and walking for prolonged periods of time, ascending/descending stairs. Patient will benefit from skilled physical therapy to address the impairments and activity limitations listed above. Prognostic factors include chronic nature of symptoms and patient's age. Primary Functional Limitations sit for prolonged periods of time, standing and walking for prolonged periods of time, ascending/descending stairs. Plan of Care Rehabilitation Potential Good Physical Therapy Goals Short term goals (05/12/23 6 weeks) 1. Patient will demonstrate MMT of 4/5 in hip and L LE in order to demonstrate improved tolerance with walking and ascending/descending stairs 2 Patient will report <6/10 at worst pain in order to demonstrate decreased pain and disability related to symptoms 3. Patient will report less than 3 instances of knee buckling per week to demonstrate decreased disability related to knee nursing home goals (12 weeks ) 1. Patient will demonstrate LEFS score improvement of to 65 or greater to demosntrate decreased pain and disability related to symptoms 2. Patient will report <4/10 pain in order to demonstrate decreased pain and disability related to symptoms 3. Patient will demonstrate independence with HEP in order to decrease knee pain and improve knee strength 4. Patient will tolerate walking 4 miles or greater with no increase in pain order to return to prior level of function. 5. Patient will ascend/descend flight of stairs with no increase in pain and no buckling in order to complete laundry on second floor of apartment Treatment Plan/Direct Interventions Joint Mobilization,Manual Therapy,Neuromuscular Re-ed, Self-Care/Home Management, Therapeutic Activities, Therapeutic Exercises Frequency/Duration 1-2 x/week up to 12 weeks Patient Will Be Discharged From Therapy Completion of LTG(s),Skills Plateau,Independent w/HEP Evaluation Billing Untimed Code Treatment Minutes 20 Complexity Low Certification Information Initial Certification Date 03/31/23 Ending Certification Date 06/28/23 Provider Signature Shows Agreement With POC & Medical Necessity Physician Signature & Date Requested Please Sign/Date Here Physician Comment/Change : Physician NPI Number #
== END 2023-06-27 13:21 | disposition home or self-care (01) ==
PROVIDERS: PCP Family Medicine; Visit Provider Family Medicine
DX: M25.562 Pain in left knee (principal); Z51.89 Encounter for other specified aftercare
CPT/HCPCS: 97110; 97140; 97161; 97530

== ENCOUNTER 2024-02-07 07:30 | Outpatient (CLI) | payer BC, SELFPAY | END 2024-02-07 07:31 | disposition home or self-care (01) | LOC: NFLDREF 02-08 11:13 | PROVIDERS: PCP Family Medicine; Referring Provider Family Medicine; Visit Provider Physician Assistant | DX: R63.5 Abnormal weight gain (principal); Z51.81 Encounter for therapeutic drug level monitoring; Z13.220 Encounter for screening for lipoid disorders; Z13.228 Encounter for screening for other metabolic disorders; Z13.29 Encounter for screening for other suspected endocrine disorder | CPT/HCPCS: 80053; 80061; 84443 ==

== ENCOUNTER 2024-05-16 22:04 | Emergency (ER) | payer BC, SELFPAY ==
[2024-05-16 22:25] VITALS: BP 125/80; PULSE 86; RESP 16; TEMP 36.2; O2SAT 98; BMI 40.5
--- NOTE | 2024-05-16 23:49 | PC.NURSE ---
Pt ambulate from triage to room 2 without diff. Pt noted to be clutching stuffed animal. SO at Bs stating he is worried about her circulation LE. Noted to have short shorts on and sandles with tank top. Warm blanket provided with all cares explained.
--- NOTE | 2024-05-17 00:11 | CRLHL7_ITS ---
For Patients: As a result of the Cures Act, medical imaging exams and procedure reports are released immediately into your electronic medical record. You may view this report before your referring provider. If you have questions, please contact your health care provider. Indication: Dyspnea when flat Technique: Two views of the chest Comparison: None Findings/Impression: No acute cardiopulmonary process detected. Dictated by Ramirez Davis MD @ 05/17/2024 1:38:13 AM (Electronically Signed)
--- NOTE | 2024-05-17 00:13 | ED.GENADULT ---
HPI - General Adult General Chief complaint: Shortness of Breath/Dyspnea Stated complaint: hard time breathing when laying down Time Seen by Provider: 05/16/24 23:55 Source: patient Mode of arrival: ambulatory Limitations: no limitations History of Present Illness HPI narrative: 29-year-old female with no prior history of coagulopathy presents to the emergency department with feeling of shortness of breath when she lies flat. Improves with position changes like rolling to her side and sitting up. There is no exertional dyspnea. Noticed it last night and again this evening when she lied down. It is not accompanied by fever, productive cough, chest pain or cardiac symptoms. There is no nausea, heartburn or GI changes. Denies prior history of similar symptoms. She does have a history of morbid obesity and has never had a sleep study. Her significant other times in and states that he has similar symptoms at times. He has a similar body habitus. She has not tried any interventions to help with her symptoms. She reports that she is concerned about her ?circulation?. She states that she has had a diagnosis of Raynaud's syndrome and was recently started on amlodipine. It does not appear as though she has any arterial disease. She does not give clear indication whether or not the new amlodipine is helping with her ?Raynaud's. As she describes it to me, it does sound a bit more consistent with dependent venous stasis as symptoms are always happening at rest. Past medical history notable for morbid obesity, depression with a history of psychosis, migraines and ADHD. Home medications are notable for amlodipine, Abilify, Strattera, Lexapro. Phentermine is also on her medication list but she does not report taking this. ROS is notable for the chest symptoms as described above only, otherwise denies times 12 systems. Related Data Home Medications ?Medication ?Instructions ?Recorded ?Confirmed clindamycin phosphate 1 % lotion 1 topical BID 06/10/22 04/27/24 atomoxetine 25 mg capsule 25 mg PO QDAY 01/28/23 04/27/24 xhoqrxhmaf-euduzvjqirind-aftdkfux 1 cap PO Q8H 03/24/23 04/27/24 50 mg-300 mg-40 mg capsule aripiprazole 5 mg tablet 7.5 mg PO DAILY 01/10/24 04/27/24 escitalopram oxalate 20 mg tablet 20 mg PO QDAY 01/10/24 04/27/24 (Lexapro) trazodone 150 mg tablet 150 mg PO QPM 02/02/24 04/27/24 Previous Rx's ?Medication ?Instructions ?Recorded ondansetron 8 mg disintegrating 8 mg PO TID PRN nausea and 01/28/23 tablet vomiting #20 tabs sumatriptan succinate 100 mg tablet 100 mg PO Q2H PRN migraine 02/04/23 headache #10 tabs amlodipine 5 mg tablet 5 mg PO QDAY #30 tabs 04/27/24 phentermine 37.5 mg tablet 37.5 mg PO QDAY #30 tabs 05/07/24 Allergies Allergy/AdvReac Type Severity Reaction Status Date / Time No Known Drug Allergies Allergy Verified 04/27/24 11:39 [facility] Medical History Exogenous obesity ?E66.09 - Other obesity due to excess calories (ICD-10) Major depression, chronic ?F32.9 - Major depressive disorder, single episode, unspecified (ICD-10) Schizoaffective disorder ?F25.9 - Schizoaffective disorder, unspecified (ICD-10) Migraine headache ?G43.909 - Migraine, unspecified, not intractable, without status migrainosus (ICD-10) Attention deficit disorder ?F98.8 - Other specified behavioral and emotional disorders with onset usually occurring in childhood and adolescence (ICD-10) Anxiety ?F41.9 - Anxiety disorder, unspecified (ICD-10) Surgical History History of third molar tooth extraction ?K08.409 - Partial loss of teeth, unspecified cause, unspecified class (ICD-10) Family History Brother Depression Mother Migraines Social History Narrative: , currently not working. Exercises twice a week. Nonsmoker. No alcohol or illicit drug use. Feels safe in no concerns with abuse. What is your current living situation?: I presently have a place to live Problems where you live: no known problems In the past 12 months, utilities in danger of being shut off: no In past 12 months, lack of transportation kept you from medical appts, meetings, work, or getting things needed for daily living: no In the past 12 mos, have been you worried that your food would run out before you had money to buy more?: often true In the past 12 mos, the food you bought just didn't last and you didn't have money to buy more?: often true Smoking Status: Never smoker How often do you have a drink containing alcohol: never AUDIT-C Alcohol total score: 0 Non-prescribed substance use: denies use How often does anyone, including family, friends and others, physically hurt you: never How often does anyone, including family, friends and others, insult or talk down to you: never How often does anyone, including family, friends and others, threaten you with harm: never How often does anyone, including family, friends and others, scream or curse at you: never Little interest or pleasure in doing things: several days Feeling down, depressed, or hopeless: several days service: No Exam Const: Vital Signs, click to edit/add: Vital Signs - 24 hr 05/16/24 22:25 Temperature 97.1 F L Pulse Rate [Left P ulse Oximeter] 86 Respiratory Rate 16 Blood Pressure [Ri ght Upper Arm] 125/80 Pulse Oximetry 98 Oxygen Delivery Me thod Room Air Documenting provider has reviewed patient's vital signs: yes Common normals: no apparent distress General appearance: cooperative and comfortable Other: Appears well nourished, well hydrated. HENMT: Common normals: normocephalic and oropharynx normal Head and scalp: normocephalic Mouth: oral and palatal mucosa normal Throat: posterior oropharynx normal Eye: Common normals: conjunctivae normal General eye: normal appearance of both eyes Conjunctiva: conjunctiva(e) normal Neck & C-Spine: Common normals: full ROM and no lymphadenopathy Chest: Common normals: inspection of chest normal Other: Central obesity with barrel chest. Resp: Common normals: normal respiratory effort, no use of accessory muscles and clear to auscultation bilaterally Effort & inspection: able to speak in complete sentences Auscultation: clear to auscultation bilaterally Cardio: Common normals: regular rate, regular rhythm, S1 normal heart sound, S2 normal heart sound and no murmurs Rate: regular rate Rhythm: regular rhythm Heart sounds: S1 normal and S2 normal GI: Common normals: Normal to inspection, nondistended, normoactive bowel sounds present, soft to palpation, no hepatosplenomegaly and no masses Palpation: soft and no hepatosplenomegaly Extremity: Common normals: normal to inspection, full ROM and normal capillary refill Other: Negative Homans bilaterally. Good pedal pulses, normal extremity temperature. Neuro: Speech: speech normal Motor exam: strength 5/5 throughout and no movement abnormalities noted Psych: Attitude: engaged Activity/motor behavior: appropriate eye contact Insight: fair (Suspect borderline intellectual functioning.) Judgement: fair Skin: Common normals: no rashes or lesions noted General skin exam: no rashes or lesions noted Course Course ED Course: 29-year-old female with feeling of shortness of breath with lying flat. No hypoxia or, exertional symptoms or tachycardia. Differential diagnosis including pulmonary embolism, GERD, pneumonia, bronchitis, asthma, cardiac process, soft gel spasm, obstructive sleep apnea. Less suspicion for pulmonary embolism due to the fact that she is not exhibiting any tachycardia, hypoxia or exertional symptoms. I suspect this is obesity hypoventilation syndrome and have discussed this with her. I do think she would benefit from an outpatient sleep study. Will check EKG, typical labs and chest x-ray to ensure that there are no other signs of abnormality. If these are reassuring, would recommend primary care follow-up and referral for outpatient sleep study. Reevaluation(s) Time of Reevaluation #1: 01:43 Reevaluation #1: Reviewed findings with patient. Remains asymptomatic. Walking O2 sats 95-98%, asymptomatic with exertion. Chest x-ray, labs are all reassuring. Repeat exam reassuring. Suspect that this may be a consequence of obesity hypoventilation syndrome, underlying sleep apnea or potentially an atypical presentation of GERD or pleurisy. Counseled patient on findings. I have recommended that she make a follow-up appointment with her primary care provider to discuss a sleep study. We also extensively reviewed alarm symptoms that would warrant ED presentation including exertional symptoms, high fevers, severe shortness of breath. She verbalizes understanding and agreement. No additional treatment needed at this time. Vital Signs Vital signs: Initial Vital Signs Temperature 97.1 F L 05/16/24 22:25 Temperature Source Temporal Artery Scan 05/16/24 22:25 Pulse Rate 86 05/16/24 22:25 Pulse Rhythm Regular 05/16/24 22:25 Respiratory Rate 16 05/16/24 22:25 Blood Pressure 125/80 05/16/24 22:25 Blood Pressure Mean 95 05/16/24 22:25 Blood Pressure Position Sitting 05/16/24 22:25 Pulse Oximetry 98 05/16/24 22:25 Oxygen Delivery Method Room Air 05/16/24 22:25 Vital Signs Temperature 97.1 F L 05/16/24 22:25 Pulse Rate 86 05/16/24 22:25 Respiratory Rate 16 05/16/24 22:25 Blood Pressure 125/80 05/16/24 22:25 Pulse Oximetry 98 05/16/24 22:25 Oxygen Delivery Method Room Air 05/16/24 22:25 Temperature 97.1 F L 05/16/24 22:25 Pulse Rate 86 05/16/24 22:25 Respiratory Rate 16 05/16/24 22:25 Blood Pressure 125/80 05/16/24 22:25 Pulse Oximetry 98 05/16/24 22:25 Oxygen Delivery Method Room Air 05/16/24 22:25 Medical Decision Making Lab Data Labs: Lab Results 05/17/24 Range/Units 00:25 WBC 8.78 (4.50-11.00) K/uL RBC 4.43 (4.00-5.20) m/uL Hgb 12.3 (12.0-16.0) gm/dL Hct 37.6 (33.0-51.0) % MCV 85 (80-100) fL MCH 28 (26-34) pg MCHC 33 (32-36) gm/dL RDW Coeff of [place] 12.4 (11.5-15.5) % Plt Count 311 (140-440) K/uL Neut % (Auto) 53.4 (42.0-72.0) % Lymph % (Auto) 34.7 (20-44) % [place] % (Auto) 8.3 (0.0-11.0) % Eos % (Auto) 3.2 (0.0-7.0) % Baso % (Auto) 0.3 (0.0-3.0) % Neut # (Auto) 4.68 (1.7-7.0) K/uL Lymph # (Auto) 3.05 H (0.90-2.90) K/uL [place] # (Auto) 0.70 (0.00-0.90) K/UL Eos # (Auto) 0.28 (0.00-0.50) K/uL Baso # (Auto) 0.03 (0.00-0.30) K/uL Abs Immat Gran (auto) 0.01 (0.00-0.30) K/uL Imm/Tot Granulo (auto) 0.1 % Sodium 139 (135-149) mmol/L Potassium 3.8 (3.6-5.1) mmol/L Chloride 105 (96-114) mmol/L Carbon Dioxide 24 (20-32) mmol/L Anion Gap 10 (7-15) mEq/L BUN 18 (5-24) mg/dL Creatinine 0.8 (0.5-1.5) mg/dL Estimated Creat Clear 88.79 Estimated GFR 102 ml/min Glucose 96 (60-115) mg/dL Calcium 9.3 (8.4-10.6) mg/dL Total Bilirubin 0.5 (0.1-1.5) mg/dL AST 31 (12-35) U/L ALT 46 H (4-35) U/L Alkaline Phosphatase 69 (40-150) U/L C-Reactive Protein 1.7 H (0.5-1.0) mg/dL NT-Pro-B Natriuret Pep < 20 pg/mL Total Protein 7.8 (6.0-8.3) g/dL Albumin 4.5 (3.3-5.0) g/dL ECG Data Attestation: I personally reviewed and interpreted this ECG as follows: Prior ECG tracings: not available for review Interpretation: Normal sinus rhythm, rate of 81. Normal intervals and axis. No significant ST or T-wave abnormalities. Normal EKG. Discharge Plan Discharge Clinical Impression: Obesity hypoventilation syndrome Patient Disposition: Home w/ Parent or Adult Condition: Improved Instructions: Shortness of Breath (ED) Additional Instructions: As we discussed, there are no signs of any dangers to your breathing, heart or other chest organs today. Your symptoms are suspicious for underlying obstructive sleep apnea or obesity hypoventilation syndrome. Your chest x-ray, labs and remainder of exam are all reassuring. As we discussed, a good indicator for knowing if your symptoms are dangerous with this is if they worsen on exertion rather than improve. I would recommend that you make a follow-up appoint with your primary care doctor to specifically discuss a sleep study. Activity Level: No Restrictions Discharge Diet: Regular Prescriptions: No Action clindamycin phosphate 1 % lotion 1 topical BID Rx Instructions: Apply topically to affectd area twice daily qosbaszflm-cijcphjamvhin-jvgx 50-300-40 mg capsule 1 cap PO Q8H aripiprazole 5 mg tablet 7.5 mg PO DAILY escitalopram oxalate [Lexapro] 20 mg tablet 20 mg PO QDAY trazodone 150 mg tablet 150 mg PO QPM amlodipine 5 mg tablet 5 mg PO QDAY Qty: 30 2RF atomoxetine 25 mg capsule 25 mg PO QDAY ondansetron 8 mg tablet,disintegrating 8 mg PO TID PRN (Reason: nausea and vomiting) Qty: 20 0RF sumatriptan succinate 100 mg tablet 100 mg PO Q2H PRN (Reason: migraine headache) Qty: 10 5RF Rx Instructions: ONE TAB AT ONSET OF HEADACHE, MAY REPEAT ONCE IN 2 HRS, MAX 200 MG/24 HRS phentermine 37.5 mg tablet 37.5 mg PO QDAY Qty: 30 0RF Rx Instructions: must administer 30 minutes before or 1-2 hours after breakfast Follow Up/Referrals: Nael Hassan MD [Primary Care Provider] - Stand Alone Forms: [facility] Info Instructions
--- OUTSIDE RECORDS SUMMARY | 2024-05-17 00:22 | XMS_ITS | Clinical Summary ---
Author Organization [facility] Address [address] [place] [address] Care Team Providers Care Chief Design Engineer Name Role Phone Luna Dennis MD Primary Care Provider [phone] Source Comments You are receiving this document as you are listed as the primary care provider,follow-up provider, or the patient has been referred to you for consultation.This is in compliance with the Medicare and[facility],which states Providers who transition their patient to another setting of careor provider of care or refers their patient to another provider of care shouldprovide summary care record for each transition of care or referral. Open Utility Allergies No known active allergies Medications Medication Sig Dispensed Refills Start Date End Date Status escitalopram oxalate (AKA LEXAPRO) 20 MG tabletIndications:SHAILA FARMER March 31, 2016 2:25 PM Received from: Consuelo Take 20 mg by mouth. 01/29/2016 Active atomoxetine (STRATTERA) 40 MG capsule Take 40 mg by mouth. 12/13/2017 Active ARIPiprazole (ABILIFY) 5 MG tablet Take 2.5 mg daily x 2 weeks, THEN increase to 5 mg daily. 02/27/2018 Active fluticasone (FLONASE) 50 MCG/ACT nasal solutionIndications:C hronic cough Place 2 Sprays into both nostrils daily. 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 Initially, she was started on risperidone (but caused too much weight gain) and now she is taking abilify (weight now stable) Hx of psychiatric care 06/07/2016 Overview: Overview: Past Psychiatric Medication Trials: - Dexedrine - Wellbutrin, dc'd to limit activating medications - Risperidone - Lexapro - Concerta Learning disability 02/01/2013 Overview: Overview: Nonverbal in nature (see assessment via [facility], 12/2012). Depressive disorder 03/23/2007 Attention deficit hyperactivity disorder (ADHD) 06/14/2006 Overview: LW Onset: [id number] ; Attention Deficit Dis w Hyperactivity Undiagnosed cardiac murmurs 06/14/2006 Overview: LW Onset: 83Shf22 ; Murmur Innocent Immunizations Name Administration Dates Next Due 4vHPV (Gardasil) 10/05/2013,09/07/2013, 3 DTP 05/13/1995, 5,1994,1993,1994 HepB Ped/Adol (0-18 yrs) 04/01/1995,1994,0 1994 Hib (ActHIB) 03/22/1995, 4,1994,1993 Influenza IIV4 (Quadrivalent ) 0.5mL (34272) 07/19/2018 MMR 08/06/1998,04/01/1995 Polio, Unspecified Formulation 5,1994,1994,1993 TDAP (BOOSTRIX) 06/14/2006 Tdap 08/30/2016 Varicella 08/22/2001 Family History * Patient is adopted Medical History Relation Name Comments Cancer, Lung Father Nael unk age Adopted Mother Cindi= bio ? (aunt gelacio was likely her real mother) Depression Mother Cindi= bio Mental Disorder Mother Cindi= bio Anxiety Brother Theodore Bipolar Disorder Brother Theodore Depression Brother Theodore PTSD Brother Theodore Bipolar Disorder Sister Sumaya Depression Sister Sumaya Relation Name Status Comments Father Nael Mother Cindi= bio Alive Brother Theodore Alive Maternal Aunt Gelacio Alive Maternal Grandfather Maternal Grandmother Sister Sumaya Alive Social History Tobacco Use Types Packs/Day Years Used Date Smoking Tobacco: Never Smokeless Tobacco: Never Alcohol Use Standard Drinks/Week Comments No 0 (1 standard drink = 0.6 oz pur e alcohol) Sex and Gender Information Value Date Recorded Sex Assigned at Not on file Gender Identity Not on file Sexual Orientation Not on file Last Filed Vital Signs Vital Sign Reading Time Taken Comments Blood Pressure 112/86 08/17/2018 7:48 AM CDT Pulse 86 08/17/2018 7:48 AM CDT Temperature 36.8 ??C (98.2 ??F) 08/17/2018 7:48 AM CD T Respiratory Rate - - Oxygen Saturation 97% 08/17/2018 8:32 AM CDT 97 Inhaled Oxygen Concentration - - Weight 95.3 kg (210 lb) 08/17/2018 7:48 AM CDT Height 161.3 cm (5' 3.5) 08/17/2018 7:48 AM CDT Body Mass Index 36.62 08/17/2018 7:48 AM CDT Plan of Treatment Health Maintenance Due Date Last Done Comments Hep C Screening (Preventive Services) 1994 HIV Screening (Preventive Services) 2010 HPV Vaccine (3 - 3-dose series) 12/28/2013 10/05/2013, 09/07/2013, 03/16/2013 Cervical Cancer Screening 08/30/2019 08/30/2016 Adult Preventive Visit 12/26/2019 12/26/2017, 2015 COVID-19 Vaccine ( season) 2023 06/21/2021 Influenza (Season Ended) 2024 07/19/2018 DTaP/Tdap/Td (7 - Tdap) 08/30/2026 08/30/20 16, 06/14/2006, 05/13/1995, Additional history exists Zoster/Shingles (1 of 2) 2044 Hib Completed 03/22/1995, 10/22, 1994, Additional history exists HepB Completed 04/01/1995, 08/22, 1994 IPV (Polio) Completed 04/01/1995, 10/22, 1994, Additional history exists HepA Aged Out No longer eligi ble based on patient's age to complete this topic MCV4 Aged Out No longer eligi ble based on patient's age to complete this topic Pneumococcal Aged Out No longer eligi ble based on patient's age to complete this topic Procedures Procedure Name Priority Date/Time Associated Diagnosis Comments ANATOMICAL PATH LIQUID BASED Routine 08/30/2016 10:46 AM CDT from Last 3 Months or Most Recently Relevant to Health Maintenance Results * Pap Smear (08/30/2016 10:46 AM CDT) 08/30/2016 10:4 6 AM CDT Narrative PN SOFT - 09/03/2016 3:32 PM CDT FINAL GYNECOLOGICAL CYTOLOGY REPORT Pathology #: [id number] ?Date Obtained: 08/30/2016 ? Date Received: 08/31/2016 INTERPRETATION/RESULTS: Negative for Intraepithelial Lesion or Malignancy. SPECIMEN ADEQUACY: Satisfactory for Evaluation. ??Endocervical cells/transformation zone component present. Verified on 09/03/2016 ??by DUONG CHAKRABORTY(ASCP) (electronic signature) CLINICAL NOTES: ?Abnormal bleeding: No, LMP: 08/25/16, Menstrual status: None ?Apply, Current form of therapy: Hormone Therapy LIQUID BASED PAP SMEAR SPECIMEN TYPE: ?ROUTINE CERVICAL PAP TEST PLEASE NOTE: The pap smear is a screening test designed to aid in the detection of cervical cancer and its precursor lesions. It is not a diagnostic procedure and should not be used as the sole means of detecting cervical cancer. Both false-positive and false-negative reports may occur. Performed at [facility], [address] [place] [address] Yennifer Shaw MD [facility] [address] [place] [address] from Last 3 Months or Most Recently Relevant to Health Maintenance Care Teams Chief Design Engineer Relationship Specialty Start Date End Date Luna Dennis MD [address] [place] [id number] PCP - General Family Practice 08/12/18
--- OUTSIDE RECORDS SUMMARY | 2024-05-17 00:22 | XMS_ITS | Clinical Summary ---
Author Organization [facility] Address [place], [place] [address] Care Team Providers Care Patient Care Coordinator Name Role Phone Queenie Lozano MD Unavailable Yennifer Shaw MD Primary Care Provider [phone] Allergies Active Allergy Reactions Criticality Noted Date Comments Pollen Extracts 07/26/2006 Medications Medication Sig Dispensed Refills Start Date End Date Status phototherapy light box For home use. 1 unit 0 01/23/2013 Active melatonin 3 mg tablet Take 2 tablets by mouth at bedtime if needed for Sleep. 0 12/03/2014 Active buPROPion (WELLBUTRIN SR; ZYBAN) 150 mg Sustained-Release tablet Take 1 tablet by mouth every morning. 30 tablet 2 01/28/2015 Active methylphenidate (CONCERTA) 54 mg ER tabletIndications:ADHD (attention deficit hyperactivity disorder), inattentive type Take 1 tablet by mouth once daily. 30 tablet 0 03/11/2015 Active Active Problems Problem Noted Date Diagnosed Date Learning disability 02/01/2013 Overview: Nonverbal in nature (see assessment via [facility]). Depressive disorder, not elsewhere classified Attention deficit disorder with hyperactivity(31 4.01) 07/26/2006 Social History Tobacco Use Types Packs/Day Years Used Date Smoking Tobacco: Never Alcohol Use Standard Drinks/Week Comments No 0 (1 standard drink = 0.6 oz pur e alcohol) Sex and Gender Information Value Date Recorded Sex Assigned at Not on file Gender Identity Not on file Sexual Orientation Not on file Obstetrics History Last Filed Vital Signs Vital Sign Reading Time Taken Comments Blood Pressure 115/68 07/26/2017 2:08 AM CDT Pulse 78 07/26/2017 2:08 AM CDT Temperature 36.9 ??C (98.4 ??F) 07/26/2017 1:03 AM CD T Respiratory Rate 16 07/26/2017 2:08 AM CDT Oxygen Saturation 99% 07/26/2017 2:08 AM CDT Inhaled Oxygen Concentration - - Weight 83.5 kg (184 lb) 07/26/2017 1:03 AM CDT Height 160 cm (5' 3) 07/26/2017 1:03 AM CDT Body Mass Index 32.59 07/26/2017 1:03 AM CDT Plan of Treatment Health Maintenance Due Date Last Done Comments Tdap 2005 Depression screening for age 12+ 2006 HIV for age 15-65 2009 Hepatitis C screening for ag e 18-79 2012 Tetanus booster 2014 BMI (ht and wt on same day) for age 18+ 07/26/2018 07/26/2017 COVID-19 vaccine series (2022-24 season) 2023 Influenza for age 9-49 07/22/2024 Pap test for age 21-65 01/10/2027 , 01/10/2024, 01/15/2020 Pneumococcal series for age 6-64 Aged Out No longer eligible b ased on patient's age to complete this topic Procedures Procedure Name Priority Date/Time Associated Diagnosis Comments HPV THIN PREP Routine 01/10/2024 4:00 PM THERMAL TECHNICIAN from Last 3 Months or Most Recently Relevant to Health Maintenance Results * HPV HIGH RISK (01/10/2024 4:00 PM THERMAL TECHNICIAN) TYPE 16 Negative Negative 01/13/2024 1:42 PM THERMAL TECHNICIAN [facility] TYPE 18 Negative Negative 01/13/2024 1:42 PM THERMAL TECHNICIAN [facility] OTHER HIGH RISK TYPES Negative Negative 01/13/2024 1:42 PM THERMAL TECHNICIAN [facility] Other (Cervical) 01/10/2024 4:00 PM THERMAL TECHNICIAN 01/12/2024 9:54 AM THERMAL TECHNICIAN Narrative [facility] - 01/13/2024 1:42 PM THERMAL TECHNICIAN HPV types 16, 18, 31, 33, 35, 39, 45, 51, 52, 56, 58, 59, 66 and 68 DNA were undetectable or below the pre-set threshold. Methodology: Amelia Jasmin 4800 HPV Test February L Leonid SCHAEFFER MICROBIOLOGY [facility] [address] [place] [address], from Last 3 Months or Most Recently Relevant to Health Maintenance Care Teams Patient Care Coordinator Relationship Specialty Start Date End Date Yennifer Shaw MD PCP - General Obstetrics and Gynecology 10/31/16 Queenie Lozano MD Psychiatry 12/04/13
[2024-05-17 00:37] LABS: Basophils Absolute Auto 0.03 K/uL (0.00-0.30); Basophils Percent Auto 0.3 % (0.0-3.0); Eosinophils Absolute Auto 0.28 K/uL (0.00-0.50); Eosinophils Percent Auto 3.2 % (0.0-7.0); Hematocrit 37.6 % (33.0-51.0); Hemoglobin* 12.3 gm/dL (12.0-16.0); Immature Granulocytes Abs Auto 0.01 K/uL (0.00-0.30); Immature Granulocytes Pct Auto 0.1 %; Lymphocytes Absolute Auto 3.05 K/uL (0.90-2.90); Lymphocytes Percent Auto 34.7 % (20-44); Mean Corpuscular HGB Conc 33 gm/dL (32-36); Mean Corpuscular Hemoglobin 28 pg (26-34); Mean Corpuscular Volume 85 fL (80-100); Monocytes Percent Auto 8.3 % (0.0-11.0); Neutrophils Absolute Auto 4.68 K/uL (1.7-7.0); Neutrophils Percent Auto 53.4 % (42.0-72.0); Platelet Count* 311 K/uL (140-440); RDW Coefficient of Variation % 12.4 % (11.5-15.5); Red Blood Count 4.43 m/uL (4.00-5.20); White Blood Count* 8.78 K/uL (4.50-11.00)
[2024-05-17 00:43] LABS: Slide Review Reflex No
[2024-05-17 00:48] LABS: Albumin* 4.5 g/dL (3.3-5.0); Chloride* 105 mmol/L (96-114); Sodium* 139 mmol/L (135-149)
[2024-05-17 00:49] LABS: Potassium* 3.8 mmol/L (3.6-5.1)
[2024-05-17 00:51] LABS: Bilirubin Total* 0.5 mg/dL (0.1-1.5); Creatinine* 0.8 mg/dL (0.5-1.5); Est. Creatinine Clearance* 88.79; Estimated Glomerular Filt Rate 102 ml/min
[2024-05-17 00:52] LABS: Alanine Aminotransferase* 46 U/L (4-35); Alkaline Phosphatase* 69 U/L (40-150); Anion Gap 10 mEq/L (7-15); Aspartate Amino Transferase* 31 U/L (12-35); Blood Urea Nitrogen* 18 mg/dL (5-24); Calcium* 9.3 mg/dL (8.4-10.6); Carbon Dioxide* 24 mmol/L (20-32); Glucose* 96 mg/dL (60-115); Total Protein* 7.8 g/dL (6.0-8.3)
[2024-05-17 00:55] LABS: C Reactive Protein* 1.7 mg/dL (0.5-1.0)
[2024-05-17 01:03] LABS: NT Pro B Type NatriureticPept* < 20 pg/mL
== END 2024-05-17 01:49 | disposition home or self-care (01) ==
PROVIDERS: Emergency Provider Family Medicine; PCP Family Medicine
DX: E66.2 Morbid (severe) obesity with alveolar hypoventilation (principal)
CPT/HCPCS: 36415; 71046; 80053; 83880; 84484; 85025; 86140; 99283; 99284

== ENCOUNTER 2024-06-26 19:40 | Outpatient (CLI) | payer BC, SELFPAY ==
--- OUTSIDE RECORDS SUMMARY | 2024-06-26 19:42 | XMS_ITS | Clinical Summary ---
Author Organization [facility] Address [address] [place] [address] Care Team Providers Care Garden Implement Mechanic Name Role Phone Luna Dennis MD Primary Care Provider [phone] Source Comments You are receiving this document as you are listed as the primary care provider,follow-up provider, or the patient has been referred to you for consultation.This is in compliance with the Medicare and[facility],which states Providers who transition their patient to another setting of careor provider of care or refers their patient to another provider of care shouldprovide summary care record for each transition of care or referral. [employer] Allergies No known active allergies Medications Medication [...] Overview: Nonverbal in nature (see assessment via [facility], 12/2012). Depressive disorder 03/23/2007 Attention deficit hyperactivity disorder (ADHD) 06/14/2006 Overview: LW Onset: [id number] ; Attention Deficit Dis w Hyperactivity Undiagnosed cardiac murmurs 06/14/2006 Overview: LW Onset: [id number] ; Murmur Innocent Immunizations Name Administration Dates Next Due 4vHPV (Gardasil) 10/05/2013,09/07/2013, 3 DTP 05/13/1995, 5,1994,1993,1994 HepB Ped/Adol (0-18 yrs) 04/01/1995,1994,0 1994 Hib (ActHIB) 03/22/1995, 4,1994,1993 Influenza IIV4 (Quadrivalent ) 0.5mL (76972) 07/19/2018 MMR 08/06/1998,04/01/1995 Polio, Unspecified Formulation 5,1994,1994,1993 [...] COVID-19 Vaccine ( season) 2023 06/21/2021 Influenza (#1) 2024 07/19/2018 DTaP/Tdap/Td (7 - Tdap) 08/30/2026 [...] CDT FINAL GYNECOLOGICAL CYTOLOGY REPORT Pathology #: [id number] ?Date Obtained: 08/30/2016 ? Date Received: 08/31/2016 [...] and false-negative reports may occur. Performed at [facility], [address] [place] [address] Yennifer Shaw MD [facility] [facility] [address] [place] [address] from Last 3 Months or Most Recently Relevant to Health Maintenance Care Teams Garden Implement Mechanic Relationship Specialty Start Date End Date Luna Dennis MD [address] [place] [id number] PCP - General Family Practice 08/12/18
--- OUTSIDE RECORDS SUMMARY | 2024-06-26 19:42 | XMS_ITS | Clinical Summary ---
Author Organization [facility] [place] [address] Care Team Providers Care Soil Technician Name Role Phone Queenie Lozano MD Unavailable [phone] Yennifer Shaw MD Primary Care Provider [phone] Allergies Active Allergy Reactions Criticality Noted Date [...] Overview: Nonverbal in nature (see assessment via [facility], 12/2012). Depressive disorder, not elsewhere classified Attention [...] HPV THIN PREP Routine 01/10/2024 4:00 PM BUSINESS PROCESS CONSULTANT from Last 3 Months or Most Recently Relevant to Health Maintenance Results * HPV HIGH RISK (01/10/2024 4:00 PM BUSINESS PROCESS CONSULTANT) TYPE 16 Negative Negative 01/13/2024 1:42 PM BUSINESS PROCESS CONSULTANT [facility] TYPE 18 Negative Negative 01/13/2024 1:42 PM BUSINESS PROCESS CONSULTANT [facility] OTHER HIGH RISK TYPES Negative Negative 01/13/2024 1:42 PM BUSINESS PROCESS CONSULTANT [facility] Other (Cervical) 01/10/2024 4:00 PM BUSINESS PROCESS CONSULTANT 01/12/2024 9:54 AM BUSINESS PROCESS CONSULTANT Narrative [facility] - 01/13/2024 1:42 PM BUSINESS PROCESS CONSULTANT HPV types 16, 18, 31, 33, 35, 39, 45, 51, 52, 56, 58, 59, 66 and 68 DNA were undetectable or below the pre-set threshold. Methodology: Amelia Jasmin 4800 HPV Test February L Leonid SCHAEFFER MICROBIOLOGY [facility] [address] [place] [address], from Last 3 Months or Most Recently Relevant to Health Maintenance Care Teams Soil Technician Relationship Specialty Start Date End Date Yennifer Shaw MD PCP - General Obstetrics and Gynecology 10/31/16 Queenie Lozano MD Psychiatry 12/04/13
--- NOTE | 2024-07-17 10:18 | W.PM.SLEEP ---
Sleep Study Details Details Interpreting Provider: Blanca Note patient's name is spelled incorrectly on report her last name is Deny Blackwell, kobi Blackwell Date of Sleep Study: 06/26/24 Sleep Study Details: STUDY TYPE:? Home unattended ? BMI:? 40.8 ORDERING PROVIDER:? Blanca INDICATION:? Concern about sleep apnea ? SLEEP SUMMARY:? 561.1 minutes monitored RESPIRATORY SUMMARY:? AHI 24.8 Low oxygen 84 0.8% of study oxygen less than 90% Snoring 95.1% PERIODIC LIMB MOVEMENTS OF SLEEP:? Not recorded CARDIAC:? Range 60-116, mean 88.6 IMPRESSION:? Moderate obstructive sleep apnea RECOMMENDATION: Treatment options include weight loss and CPAP
== END 2024-06-26 19:41 | disposition home or self-care (01) ==
LOC: SLEEP 19:40
PROVIDERS: PCP Family Medicine; Visit Provider Family Medicine
DX: G47.33 Obstructive sleep apnea (adult) (pediatric) (principal)
CPT/HCPCS: 95806

== ENCOUNTER 2025-01-11 09:58 | Outpatient (CLI) | payer MEDICARE, MEDICAID, SELFPAY | END 2025-01-11 09:59 | disposition home or self-care (01) | PROVIDERS: PCP Family Medicine; Visit Provider Physician Assistant | DX: N92.0 Excessive and frequent menstruation with regular cycle (principal); E66.9 Obesity, unspecified; Z13.6 Encounter for screening for cardiovascular disorders | CPT/HCPCS: 80061; 82947; 84443 ==